=== PATIENT | male | born 1995 ===

== ENCOUNTER 2025-08-23 19:48 | Emergency (ER) | payer SELFPAY ==
[2025-08-23] MEDS ORDERED: HYDROcodone/Acetaminophen 10/325 mg Tablet ONE (22:18)
== END 2025-08-23 22:22 | disposition home or self-care (01) ==
LOC: ERS 19:48
DX: S82.144A Nondisplaced bicondylar fracture of right tibia, initial encounter for closed fracture (principal); W19.XXXA Unspecified fall, initial encounter